=== PATIENT | male | born 1995 | race Caucasian/White ===

== ENCOUNTER 2023-05-10 09:45 | Outpatient (CLI) | payer OTHER ==
--- NOTE | 2023-05-10 16:50 | XRAY Report ---
PROCEDURE: Foot 3+V LT INDICATIONS: PAIN IN LEFT FOOT TOE(S) TECHNIQUE: 3 views of the foot were acquired, nonweightbearing. COMPARISON: None. FINDINGS: Bones: No fractures or dislocations. Normal alignment on nonweightbearing view. Corticated ossific d ensity in the dorsal aspect of the talar neck likely represents an accessory ossicle or sequela of re mote injury, best seen on lateral view. No suspicious bony lesions. Soft tissues: No suspicious soft tissue calcifications or masses. IMPRESSION: No acute bony abnormality. If pain persists with conservative management, consider repeat radiographs in 10-14 days or cross-sectional imaging. Reviewed by: Cassius Wylie MD on 05/10/2023 4:49 PM PST Approved by: Cassius Wylie MD on 05/10/2023 4:49 PM PST Station ID: [id number]
== END 2023-05-10 10:00 | disposition home or self-care (01) ==
LOC: DI.N 09:45
PROVIDERS: ATTEND Physician Assistant
DX: M79.675 Pain in left toe(s) (principal)

== ENCOUNTER 2023-06-14 15:49 | Emergency (ER) | payer OTHER ==
[2023-06-14 16:21] LABS: BASOPHILS # (AUTO) 0.1 10^3/uL (0.0-0.1); EOSINOPHILS # (AUTO) 0.3 10^3/uL (0.0-0.7); EOSINOPHILS % (AUTO) 2.7 %; HCT - HEMATOCRIT 47.4 % (42.0-52.0); HGB - HEMOGLOBIN 15.6 g/dL (14.0-18.0); LYMPHOCYTES # (AUTO) 2.7 10^3/uL (1.5-3.5); LYMPHOCYTES % (AUTO) 29.2 %; MEAN CORPUSCULAR HEMOGLOBIN 28.2 pg (27.0-31.0); MEAN CORPUSCULAR HGB CONC 32.9 g/dL (32.0-36.0); MEAN CORPUSCULAR VOLUME 85.7 fL (80.0-94.0); MEAN PLATELET VOLUME 9.7 fL (7.4-11.4); MONOCYTES # (AUTO) 0.8 10^3/uL (0.0-1.0); MONOCYTES % (AUTO) 8.9 %; NEUTROPHILS # (AUTO) 5.4 10^3/uL (1.5-6.6); NEUTROPHILS % (AUTO) 57.9 %; PLT - PLATELET COUNT 392 10^3/uL (130-450); RED BLOOD COUNT 5.53 10^6/uL (4.70-6.10); RED CELL DISTRIBUTION WIDTH 13.1 % (12.0-15.0); WHITE BLOOD COUNT 9.3 x10^3/uL (4.8-10.8)
[2023-06-14 16:34] LABS: ALBUMIN 4.6 g/dL (3.2-5.5); ALBUMIN/GLOBULIN RATIO 1.6 (1.0-2.2); ALKALINE PHOSPHATASE 50 IU/L (42-121); ALT ALANINE AMINOTRANSFERASE 22 IU/L (10-60); AST ASPARTATE AMINOTRANSFERASE 16 IU/L (10-42); BILIRUBIN,TOTAL 0.4 mg/dL (0.2-1.0); BUN - BLOOD UREA NITROGEN 16 mg/dL (6-20); CARBON DIOXIDE - CO2 30 mmol/L (21-32); CHLORIDE 103 mmol/L (101-111); GFR - MDRD 88 (>89); GLUCOSE 75 mg/dL (74-104); LIPASE 20 U/L (11-82); SODIUM 137 mmol/L (135-145); TOTAL PROTEIN 7.5 g/dL (6.4-8.9)
[2023-06-14 16:41] LABS: TROPONIN I HIGH SENSITIVITY < 2.3 ng/L (2.3-19.7)
--- NOTE | 2023-06-14 16:54 | ED Physician Documentation ---
PD HPI CHEST PAIN - Stated complaint Stated Complaint: CHEST PX - Chief complaint Chief Complaint: Cardiac - History obtained from History obtained from: Patient - Additional information Additional information: 28-year-old gentleman with recent diagnosis of anxiety presents with evaluation of chest pain. He has no medical problems. No family history of coronary disease. He has had intermittent chest pain for the last 6 days. It is to the left of the high sternum and lateral left chest. It is better when he is upright. No other triggers other than he thinks junk food makes it worse. Denies pedal edema, calf pain, recent travel. No risk factors for heart disease identifiable other than BMI of 36. PD PAST MEDICAL HISTORY - Past Medical History Past Medical History: Yes Cardiovascular: None Respiratory: None Neuro: None Endocrine/Autoimmune: None GI: None : None HEENT: None Psych: Depression Musculoskeletal: None Derm: None - Past Surgical History Past Surgical History: Yes Ortho: Other HEENT: Other - Present Medications Home Medications: Ambulatory Orders Medication Instructions Recorded Confirmed Cholecalciferol [Vitamin D3] 25 mcg PO DAILY 06/14/23 06/14/23 Famotidine [Pepcid] 20 mg PO BID #60 tablet 06/14/23 Propranolol [Inderal] 20 mg PO BID 06/14/23 06/14/23 buPROPion [Wellbutrin Xl] 150 mg PO DAILY 06/14/23 06/14/23 - Allergies Allergies/Adverse Reactions: Allergies Allergy/AdvReac Type Severity Reaction Status Date / Time No Known Drug Allergies Allergy Verified 06/14/23 16:05 - Social History Does the pt smoke?: No Smoking Status: Never smoker Does the pt drink ETOH?: No Does the pt have substance abuse?: No - Immunizations Immunizations are current?: Yes - POLST Patient has POLST: No PD ED PE NORMAL - Vitals Vital signs reviewed: Yes - General General: Alert and oriented X 3, No acute distress - HEENT HEENT: PERRL, EOMI - Neck Neck: Supple, no meningeal sign, No bony TTP - Cardiac Cardiac: RRR, No murmur, Other (Pain is partially reproducible with palpation of the left chest.) - Respiratory Respiratory: No respiratory distress, Clear bilaterally - Abdomen Abdomen: Non tender - Extremities Extremities: No edema, No calf tenderness / cord - Neuro Neuro: Alert and oriented X 3, Normal speech Results - Vitals Vitals: Vital Signs - 24 hr 06/14/23 06/14/23 15:51 17:07 Temperature 36.5 C Heart Rate 60 74 Respiratory 16 26 H Rate Blood Pressure 140/94 H 126/86 H O2 Saturation 100 96 Oxygen O2 Source Room air - EKG (time done) 1601 EKG releavant findings:: EKG personally interpreted by author of this note. Relevant findings are: Rate: Rate (enter#) (54) Rhythm: NSR [place]: Normal Intervals: Normal [place] QRS: Normal Ischemia: Normal ST segments Computer interpretation: Agree with computer - Labs Labs: Laboratory Tests 06/14/23 06/14/23 16:17 16:17 WBC 9.3 RBC 5.53 Hgb 15.6 Hct 47.4 MCV 85.7 MCH 28.2 MCHC 32.9 RDW 13.1 Plt Count 392 MPV 9.7 Neut # (Auto) 5.4 Lymph # (Auto) 2.7 [place] # (Auto) 0.8 Eos # (Auto) 0.3 Baso # (Auto) 0.1 Absolute Nucleated RBC 0.00 Nucleated RBC % 0.0 Sodium 137 Potassium 4.0 Chloride 103 Carbon Dioxide 30 Anion Gap 4.0 L BUN 16 Creatinine 1.0 Estimated GFR (MDRD) 88 L Glucose 75 Calcium 10.0 Total Bilirubin 0.4 AST 16 ALT 22 Alkaline Phosphatase 50 Troponin I High Sens < 2.3 L Total Protein 7.5 Albumin 4.6 Globulin 2.9 Albumin/Globulin Ratio 1.6 Lipase 20 - Rads (name of study) Single view chest x-ray is unremarkable. Relevant Findings:: Final report received, EMP independent interpretation of test PD Medical Decision Making - ED course ED course: Heart score 1, PERC negative could be musculoskeletal versus GI. Will trial some Pepcid. Given close return precautions. Departure - Departure Disposition: 01 Home, Self Care Clinical Impression: Atypical chest pain Condition: Good Record reviewed to determine appropriate education?: Yes Instructions: ED Chest Pain Atypical Unkn Cause Prescriptions: Famotidine [Pepcid] 20 mg PO BID #60 tablet Comments: You are seen today for chest pain, there is thankfully no indication that it is from your heart although we do want you to return if it worsens or changes. [place]. In the meantime I am going to try something for stomach acid, it could also be muscular. Forms: PCP List Discharge Date/Time: 06/14/23 17:07
--- NOTE | 2023-06-14 17:08 | XRAY Report ---
PROCEDURE: Chest 1V INDICATIONS: Chest pain TECHNIQUE: One view of the chest was acquired. COMPARISON: None. FINDINGS: Surgical changes and devices: None. Lungs and pleura: No pleural effusions or pneumothorax. Lungs are clear. Mediastinum: Mediastinal contours appear normal. Heart size is normal. Bones and chest wall: No suspicious bony lesions. Overlying soft tissues appear unremarkable. IMPRESSION: No acute cardiopulmonary process. Reviewed by: Manish Bailey MD on 06/14/2023 5:07 PM PDT Approved by: Manish Bailey MD on 06/14/2023 5:07 PM PDT Station ID: [id number]
[2023-06-14 17:17] VITALS: BP 126/86; O2SAT 96
== END 2023-06-14 17:07 | disposition home or self-care (01) ==
LOC: ED 15:49
DX: R07.89 Other chest pain (principal)
CPT/HCPCS: 36415; 80053; 83690; 84484; 85025; 93005; 99284